=== PATIENT | male | born 1965 | race Caucasian/White ===

== ENCOUNTER 2016-10-07 21:09 | Emergency (ER) | payer OTHER ==
[~2016-10-07] VITALS: Ht 185.4 cm; Wt 69.4 kg
[~2016-10-07 21:09] MED LIST: ALLO300T2 PO; CLX20 PO; IND/25 PO; MELO7.5T6 PO
[2016-10-07 21:13] VITALS: TEMP 36.8; Ht 185.4 cm; Wt 69.4 kg
[2016-10-07] MEDS ORDERED: LORAZEPAM 1 MG TAB SL STA (22:13)
[2016-10-07] MEDS ORDERED: ATIVAN 1MG HOMEPACK PO ONE (22:15)
[2016-10-07] MEDS ORDERED: ATV/1 PO (22:51)
--- NOTE | 2016-10-07 22:52 | EMERGENCY ROOM VISIT NOTE ---
History Report prepared by Kit: Michelle Andrews Under the Supervision of: Dr. Lew Nicholas M.D. First contact with patient: 22:00 Chief Complaint: DETOX REQUEST Stated Complaint: WITHDRAWALS History of Present Illness The patient is a 50 year old male who presents to the Emergency Room with a detox request. The patient has a history of opioid abuse. He was using opioids for his back pain. He was taking 80 mg of hydrocodone every day. He has been in rehab for the past 4 days. They were trying to wean him off using Suboxone. He was told that he needs to drink more water. He left yesterday morning which is when he received his last dose. He reports worsening withdrawal symptoms since then. He reports body aches, fatigue, rhinorrhea, and constipation. He feels at risk of using again. He had a panic attack last night. He denies any fever or cough. He requests help setting up outpatient rehab. Source of History: patient Onset: yesterday morning Position: other (global) Quality: other (opioid detox) Timing: worsening Associated Symptoms: + fatigue, No fevers, No cough Note: Pt reports body aches, rhinorrhea, constipation, panic attack. Review of Systems See HPI for pertinent positives & negatives. A total of 10 systems reviewed and were otherwise negative. Past Medical & Surgical Medical Problems: (1) Gouty Arthropathy, Unspecified Family History Diabetes mellitus FH: lung disease Social History Smoking Status: Current Every Day Smoker Occupation Status: employed Current/Historical Medications Scheduled PRN Lorazepam (Ativan), 1 MG PO TID PRN for Anxiety/Agitation Allergies Coded Allergies: No Known Allergies (Unverified , 10/07/16) Physical Exam Vital Signs Date Time Temp Pulse Resp B/P (MAP) Pulse Ox O2 Delivery O2 Flow Rate FiO2 10/07/16 22:54 68 18 99/68 97 Room Air 10/07/16 21:13 36.8 77 18 75/ 98 Room Air Physical Exam GENERAL: Patient is anxious appearing, mildly dehydrated appearing, and in no acute distress. HEENT: No acute trauma, normocephalic atraumatic, mucous membranes moist, no nasal congestion, no scleral icterus. NECK: No stridor, no adenopathy, no meningismus, trachea is midline. LUNGS: No dyspnea. Clear to auscultation and equal bilaterally. No wheeze, no rhonchi. HEART: Regular rate and rhythm. No murmurs, rubs, gallops appreciated. ABDOMEN: Soft, nontender, bowel sounds positive, no masses appreciated, no peritonitis. BACK: No midline tenderness, no CVA tenderness EXTREMITIES: Normal motion all extremities, no cyanosis, no edema. NEUROLOGIC: Alert and oriented, no acute motor or sensory deficits, no focal weakness, cranial nerves grossly intact. SKIN: No rash, no jaundice, no diaphoresis. Medical Decision & Procedures Medications Administered Medications (Trade) Dose Ordered Sig/Yamil Route Start Time Stop Time Status Last Admin Dose Admin Lorazepam (Ativan Tab) 1 mg NOW STAT SL 10/07/16 22:13 10/07/16 22:14 DC 10/07/16 22:26 1 MG Lorazepam (Ativan 1MG Home Pack) 1 homepack UD ONCE PO 10/07/16 22:15 10/07/16 22:16 DC 10/07/16 23:07 1 HOMEPACK ED Course 220: The patient was evaluated in room B7. A complete history and physical exam was performed. 2213: Lorazepam 1 mg SL. 2215: Lorazepam 1 homepack PO. 2253: I reevaluated the patient. I discussed results and discharge instructions : he verbalized understanding and agreement. The patient is ready for discharge. Medical Decision Medication Reconciliation: I attest that I have personally reviewed the patient 's current medication list. Blood pressure screening: Patient was found to have normal blood pressure on screening and does not require follow-up. 50 yr old male arrives for evaluation of opioid withdrawal. Symptoms consistent with this and last use was 5 days ago. Mildly dehydrated on exam though adamantly refuses IV/labs. Sounds like he was on suboxone while in rehab up until leaving yesterday. Discussed fact I do not think it would be appropriate to start narcotic here in ED. We discussed the very real risk of benzo addiction, but he would like to try it to see if it helps some with symptoms, or at least to get some sleep at night as he needs to be able to work during day. Reviewed restrictions on benzos. Will give very limited Rx. Case Management in to discuss helping set patient up with outpatient rehab. Patient comfortable with this plan and his significant other will be involved in this. [place] Drug Monitoring Program Search Results: patient reviewed within database Drug Monitoring Findings: No prescriptions. Impression Primary Impression: Opioid withdrawal Scribe Attestation The scribe's documentation has been prepared under my direction and personally reviewed by me in its entirety. I confirm that the note above accurately reflects all work, treatment, procedures, and medical decision making performed by me. Departure Information Dispostion Home / Self-Care Prescriptions Lorazepam (ATIVAN) 1 Mg Tab 1 MG PO TID Y for Anxiety/Agitation, #8 TAB Prov: Lew Nicholas M.D. 10/07/16 Referrals Kamran Mayfield M.D. (MEDICAL) (PCP) Patient Instructions ED Withdrawal Narcotic, My [facility] Additional Instructions You have received a benzodiazepine medication prescription. These medications may cause drowsiness and should not be used with other sedative medications. Do not drive, drink alcohol, perform dangerous activities, nor make important decisions after taking these medications. THESE MEDICATIONS ARE HIGHLY ADDICTIVE! USE ONLY FOR BRIEF TIME AND FOR OPIOID WITHDRAWAL SYMPTOMS ONLY.
[2016-10-07 22:54] VITALS: BP 99/68; PULSE 68; O2SAT 97
== END 2016-10-07 23:08 | disposition home or self-care (01) ==
LOC: C.EDB 21:09
DX: F11.93 Opioid use, unspecified with withdrawal (principal); M10.9 Gout, unspecified; F17.200 Nicotine dependence, unspecified, uncomplicated; Z83.3 Family history of diabetes mellitus